=== PATIENT | male | born 1995 | race Caucasian/White ===

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

== ENCOUNTER 2017-01-18 19:38 | Emergency (ER) | payer BC ==
[~2017-01-18] VITALS: Ht 185.4 cm; Wt 70.0 kg
[2017-01-18 19:41] VITALS: BP 128/78; PULSE 92; RESP 16; TEMP 97.5; O2SAT 100
[2017-01-18] MEDS ORDERED: HYDR500C PO (19:45)
[2017-01-18] MEDS ORDERED: SODIUM CHLOR 0.9% 1000 ML INJ 1,000 ML IV ONE (19:57)
[2017-01-18] MEDS ORDERED: HYDROmorphone HCL PF 1 MG/ML VIAL IVS ONE (20:00)
[2017-01-18] MEDS ORDERED: ONDANSETRON HCL 4 MG/2 ML VIAL IVP ONE (20:00)
[2017-01-18] MEDS ORDERED: SODIUM CHLORIDE 0.9% FLUSH 10 ML FLUSH IVF PRN (20:00)
[2017-01-18] MEDS ORDERED: diphenhydrAMINE HCL 50 MG/ML VIAL IV ONE (20:00)
[2017-01-18 20:05] VITALS: O2SAT 100
--- NOTE | 2017-01-18 20:05 | PD ---
HPI Chief Complaint: Injury Time Seen by Provider: 19:57 Travel History International Travel<30 days: No Contact w/Intl Traveler<30days: No Traveled to known affect area: No History of Present Illness HPI The patient is 21 years old. He complains of inability to move the right shoulder due to pain. It was first noticed about 28 hours ago and has Worsened. Passive or Active Range Of Motion Right Shoulder Elicits Severe Pain. He Denies Weakness Numbness Tingling in the Region of the Humerus Forearm Wrist or Hand on Either Side. He's Had No Injury Recently That Might Have Caused the Pain. He History of Sickle Cell Disease. No Similar Prior Episodes. No Fever. He reports this does not feel like a typical symptom for a sickle cell type pain crisis. PFSH Past Medical History Autoimmune Disease: Yes (Sickle cell) Diminished Hearing: No Sickle Cell Disease: Yes Tetanus Vaccination: < 5 Years Influenza Vaccination: No Past Surgical History Cholecystectomy: Yes Social History Alcohol Use: No Tobacco Use: No Substance Use: Yes (THC 2-3 times a week) Allergies-Medications (Allergen,Severity, Reaction): Coded Allergies: No Known Allergies (Unverified , 06/12/16) Reported Meds & Prescriptions Reported Meds & Active Scripts Active Percocet (Oxycodone-Acetaminophen) 5-325 mg Tab 1 Tab PO Q6H PRN Reported Hydrea (Hydroxyurea) 500 Mg Cap 500 Mg PO DAILY Review of Systems Except as stated in HPI: all other systems reviewed are Neg Physical Exam Narrative GENERAL: 21-year-old male well-nourished well-developed pleasant cooperative SKIN: Warm and dry. HEAD: Atraumatic. Normocephalic. EYES: Pupils equal and round. No scleral icterus. No injection or drainage. ENT: No nasal bleeding or discharge. Mucous membranes pink and moist. NECK: Trachea midline. No JVD. CARDIOVASCULAR: Regular rate and rhythm. RESPIRATORY: No accessory muscle use. Clear to auscultation. Breath sounds equal bilaterally. GASTROINTESTINAL: Abdomen soft, non-tender, nondistended. Hepatic and splenic margins not palpable. MUSCULOSKELETAL: On exam the right shoulders appear normal visually. Range of motion on the right side is limited due to pain active range of motion. Passive range of motion is intact however limited due to pain. Hand rotary soil stabilizer operator is equal bilaterally. NEUROLOGICAL: Awake and alert. No obvious cranial nerve deficits. Motor grossly within normal limits. Five out of 5 muscle strength in the arms and legs. Normal speech. PSYCHIATRIC: Appropriate mood and affect; insight and judgment normal. Data Data Last Documented VS Vital Signs Date Time Temp Pulse Resp B/P (MAP) Pulse Ox O2 Delivery O2 Flow Rate FiO2 01/18/17 22:53 01/18/17 20:05 100 Room Air 01/18/17 19:41 97.5 92 16 Vital signs reviewed Orders Orders Basic Metabolic Panel (Bmp) (01/18/17 19:57) C-Reactive Protein (Crp) (01/18/17 19:57) Complete Blood Count With Diff (01/18/17 19:57) Retic Count (01/18/17 19:57) Chest, Single Ap (01/18/17 19:57) Ecg Monitoring (01/18/17 19:57) Iv Access Insert/Monitor (01/18/17 19:57) Oximetry (01/18/17 19:57) Ondansetron Inj (Zofran Inj) (01/18/17 20:00) Sodium Chloride 0.9% Flush (Ns Flush) (01/18/17 20:00) Sodium Chlor 0.9% 1000 Ml Inj (Ns 1000 M (01/18/17 19:57) Hydromorphone Pf Inj (Dilaudid Pf Inj) (01/18/17 20:00) Diphenhydramine Inj (Benadryl Inj) (01/18/17 20:00) Shoulder, Complete (>2vws) (01/18/17 ) Westergren Sedimentation Rate (01/18/17 19:57) Mri Joint Shoulder W/O [place] (01/18/17 ) Labs Laboratory Tests Test 01/18/17 20:03 White Blood Count 5.2 TH/MM3 Red Blood Count 2.26 MIL/MM3 Hemoglobin 8.9 GM/DL Hematocrit 25.7 % Mean Corpuscular Volume 113.4 FL Mean Corpuscular Hemoglobin 39.4 PG Mean Corpuscular Hemoglobin Concent 34.8 % Red Cell Distribution Width 18.9 % Platelet Count 214 TH/MM3 Mean Platelet Volume 6.9 FL Neutrophils (%) (Auto) 17.2 % Lymphocytes (%) (Auto) 69.9 % Monocytes (%) (Auto) 10.7 % Eosinophils (%) (Auto) 1.8 % Basophils (%) (Auto) 0.4 % Neutrophils # (Auto) 0.9 TH/MM3 Lymphocytes # (Auto) 3.6 TH/MM3 Monocytes # (Auto) 0.5 TH/MM3 Eosinophils # (Auto) 0.1 TH/MM3 Basophils # (Auto) 0.0 TH/MM3 CBC Comment AUTO DIFF Differential Total Cells Counted 100 Neutrophils % (Manual) 33 % Band Neutrophils % 1 % Lymphocytes % 58 % Monocytes % 4 % Eosinophils % 2 % Basophils % 2 % Neutrophils # (Manual) 1.8 TH/MM3 Differential Comment FINAL DIFF MANUAL Platelet Estimate NORMAL Platelet Morphology Comment NORMAL Sickle Cells 1+ Target Cells 2+ Ovalocytes 1+ [place] Bodies PRESENT Keratocytes OCC Erythrocyte Sedimentation Rate 25 mm/hr Reticulocyte Count 1.9 % Absolute Reticulocyte Count 42.9 MIL/L Blood Urea Nitrogen 11 MG/DL Creatinine 0.49 MG/DL Random Glucose 89 MG/DL Calcium Level 10.0 MG/DL Sodium Level 139 MEQ/L Potassium Level 4.0 MEQ/L Chloride Level 107 MEQ/L Carbon Dioxide Level 24.5 MEQ/L Anion Gap 8 MEQ/L Estimat Glomerular Filtration Rate 266 ML/MIN C-Reactive Protein LESS THAN 0.29 MG/DL [facility] Medical Decision Making Medical Screen Exam Complete: Yes Emergency Medical Condition: Yes Medical Record Reviewed: Yes Differential Diagnosis Septic arthritis, avascular necrosis, bone infarct, sickle cell disease, anemia Narrative Course CBC & BMP Diagram 01/18/17 20:03 Calcium Level 10.0 ESR 25 CRP 0.29 Moderate improvement moderate improvement after 0.75 mg hydromorphone. Last 24 hours Impressions Chest X-Ray 01/18/171956 Signed Impressions: Service Date/Time: Wednesday, January 18, 2017 20:09 - CONCLUSION: No acute disease. Bon Washington MD Shoulder X-Ray 01/18/17 0000 Signed Impressions: Service Date/Time: Wednesday, January 18, 2017 20:12 - CONCLUSION: Unremarkable examination of the right shoulder. Bon Washington MD Shoulder MRI 01/18/17 0000 Signed Impressions: Service Date/Time: Wednesday, January 18, 2017 21:39 - CONCLUSION: 1. Extensive edema throughout the supraspinatus tendon which is prominent. 2. There is focal signal in the distal supraspinatus tendon most characteristic of tendinopathy. Bon Washington MD The patient is resting comfortably and feels better, is alert and in no distress. The patients results and examination findings were discussed. The repeat examination is unremarkable and benign. The history, exam, diagnostic testing, and current condition do not suggest any significant pathology to warrant further testing, continued ED treatment, admission, or surgical evaluation at this point. The vital signs have been stable. The patient does not have uncontrollable pain, intractable vomiting, or other significant symptoms. The patient's condition is stable and appropriate for discharge. The patient will pursue further outpatient evaluation with a primary care physician or other designated or consulting physician as indicated in the discharge instructions. The patient expressed understanding and was agreeable with this plan. Diagnosis Primary Impression: Tendonitis Referrals: Primary Care Physician 2 days Additional Instructions: You have a choice when it comes to health care, and we are glad that you chose [facility]. Hopefully, we have met your expectations on today's visit. You are welcome to return to [facility] at any time, as we are committed to meeting the health care needs of our community. Med/Other Pt SpecificInfo: Prescription(s) given Scripts Oxycodone-Acetaminophen (Percocet) 5-325 mg Tab 1 TAB PO Q6H Y for PAIN SCALE 6 TO 10, #12 TAB 0 Refills Prov: Migel Gibbons MD 01/18/17 Disposition: 01 DISCHARGE HOME Condition: Stable Migel Gibbons MD Jan 18, 2017 20:05
[2017-01-18 20:12] LABS: AUTOMATED NEUTROPHIL # 0.9 TH/MM3 (1.8-7.7); BASOPHIL % 0.4 % (0.0-2.0); EOSINOPHIL # 0.1 TH/MM3 (0-0.4); EOSINOPHIL % 1.8 % (0.0-4.0); HEMATOCRIT 25.7 % (39.0-51.0); LYMPH % 69.9 % (9.0-44.0); LYMPHOCYTE # 3.6 TH/MM3 (1.0-4.8); MEAN CELL VOLUME 113.4 FL (80.0-100.0); MEAN CORPUSCULAR HEMOGLOBIN 39.4 PG (27.0-34.0); MEAN CORPUSCULAR HGB CONC 34.8 % (32.0-36.0); MONO % 10.7 % (0.0-8.0); NEUT % 17.2 % (16.0-70.0); PLATELET COUNT 214 TH/MM3 (150-450); RED BLOOD COUNT 2.26 MIL/MM3 (4.50-5.90); RED CELL DISTRIBUTION WIDTH 18.9 % (11.6-17.2); RETIC % 1.9 % (0.4-3.0); WHITE BLOOD COUNT 5.2 TH/MM3 (4.0-11.0)
[2017-01-18 20:15] LABS: HEMO FLAGS AUTO DIFF; REVIEW FLAG AUTO DIFF
[2017-01-18 20:27] LABS: ANION GAP 8 MEQ/L (5-15); BICARBONATE 24.5 MEQ/L (21.0-32.0); BLOOD UREA NITROGEN 11 MG/DL (7-18); CHLORIDE 107 MEQ/L (98-107); GLOMERULAR FILTRATION RATE 266 ML/MIN (>89); SODIUM (NA) 139 MEQ/L (136-145)
--- NOTE | 2017-01-18 20:30 | RADRPT ---
EXAM DATE/TIME: 01/18/2017 20:09 [facility] COMPARISON: No previous studies available for comparison. INDICATIONS : Chest discomfort. Right sided pain and numbness. MEDICAL HISTORY : Sickle Cell disease. SURGICAL HISTORY : Cholecystectomy. ENCOUNTER: Initial ACUITY: 1 day PAIN SCORE: 4/10 LOCATION: Bilateral chest FINDINGS: A single view of the chest demonstrates the lungs to be symmetrically aerated without evidence of mas s, infiltrate or effusion. The cardiomediastinal contours are unremarkable. Osseous structures are intact. CONCLUSION: No acute disease. Bon Washington MD on January 18, 2017 at 20:27 Board Certified Radiologist. This report was verified electronically.
--- NOTE | 2017-01-18 20:32 | RADRPT ---
EXAM DATE/TIME: 01/18/2017 20:12 [facility] COMPARISON: No previous studies available for comparison. INDICATIONS : Right shoulder pain. No prior trauma. MEDICAL HISTORY : Sickle Cell disease. SURGICAL HISTORY : Cholecystectomy. ENCOUNTER: Initial ACUITY: 1 day PAIN SCORE: 10/10 LOCATION: Right shoulder. FINDINGS: Multiple view examination of the right shoulder demonstrates no evidence of fracture or dislocation. The glenohumeral and acromioclavicular joints are maintained. There is normal range of motion betwe en internal and external rotation. Bony mineralization is normal. CONCLUSION: Unremarkable examination of the right shoulder. Bon Washington MD on January 18, 2017 at 20:30 Board Certified Radiologist. This report was verified electronically.
[2017-01-18 20:56] LABS: BANDS 1 % (0-6); BASOPHILS 2 % (0-2); EOSINOPHILS 2 % (0-4); NEUTROPHIL # MANUAL DIFF 1.8 TH/MM3 (1.8-7.7); POLYS (SEG NEUTROPHILS) 33 % (16-70); WBC DIFF SAMPLE 100
[2017-01-18 21:00] LABS: KERATOCYTES OCC (NORMAL); OVALOCYTES 1+ (NORMAL); TARGET CELLS 2+ (NORMAL)
[2017-01-18 21:02] LABS: SICKLE CELLS 1+ (NORMAL)
[2017-01-18 21:04] LABS: HOWELL-JOLLY BODIES PRESENT (NONE SEEN)
[2017-01-18 21:05] LABS: PLATELET ESTIMATE SMEAR NORMAL (NORMAL); PLATELET MORPHOLOGY NORMAL (NORMAL)
[2017-01-18 21:06] LABS: SCAN/DIFF FINAL DIFF MANUAL
--- NOTE | 2017-01-18 22:15 | RADRPT ---
EXAM DATE/TIME: 01/18/2017 21:39 [facility] COMPARISON: SHOULDER RIGHT COMPLETE (>2VWS), January 18, 2017, 20:12. INDICATIONS : Right shoulder pain for 3 days from lifting weights. MEDICAL HISTORY : Sickle Cell disease. SURGICAL HISTORY : Cholecystectomy. ENCOUNTER: Initial ACUITY: 3 day PAIN SCORE: 8/10 LOCATION: Right Shoulder TECHNIQUE: Multiplanar, multisequence MRI examination was performed without contrast. FINDINGS: ROTATOR CUFF: There is extensive edema throughout the supraspinatus tendon which is prominence and increased in sig nal on the T2-weighted sequences. There is focal increased signal in the distal supraspinatus tendon. There is no full thickness tear. The infraspinatus, subscapularis, and teres minor tendons are intac t. LABRUM: Labrum is within normal limits. MARROW/CARTILAGE: Bone marrow signal is homogeneous. Glenohumeral joint articular cartilage is within normal limits. OTHER: Acromioclavicular joint is within normal limits. Acromion is Type 1 (flat). Proximal biceps tendon is intact. CONCLUSION: 1. Extensive edema throughout the supraspinatus tendon which is prominent. 2. There is focal signal in the distal supraspinatus tendon most characteristic of tendinopathy. Bon Washington MD on January 18, 2017 at 22:09 Board Certified Radiologist. This report was verified electronically.
[2017-01-18] MEDS ORDERED: PERC5TAB12 PO (22:51)
== END 2017-01-18 23:02 | disposition home or self-care (01) ==
LOC: NEPE 19:38
DX: M75.91 Shoulder lesion, unspecified, right shoulder (principal); D57.1 Sickle-cell disease without crisis
CPT/HCPCS: 71010; 73030; 73221; 80048; 85007; 85027; 85044; 85652; 86140; 96361; 96374; 96375; 99285; J1170; J1200; J2405; J7030